=== PATIENT | female | born 1955 | race Caucasian/White ===

== ENCOUNTER 2023-05-19 09:16 | Outpatient (OUT) | payer MEDICARE, SELFPAY ==
--- NOTE | 2023-05-19 09:23 | MM_ITS ---
Patient Name: ANA EPPERSON MR#: [id number] : 1955 Exam Date: 05/19/2023 Ordering Doctor: DR CHANO SMILEY M.D. RADIOLOGY REPORT PROCEDURE: MM TOMOSYNTHESIS SCREENING BI COMPARISON: MG MAMM SCREEN 3D JOSEPHINE CAD, 05/12/2022. MG MAMM SCREEN JOSEPHINE W CAD, 01/22/2020. MG MAMM SCREEN JOSEPHINE W CAD, 01/09/2019. MG MAMM SCREEN JOSEPHINE W CAD, 07/20/2016. INDICATIONS: Screening Calculator Name NCI Breast Cancer Risk Assessment Tool 5 Year Breast Cancer Risk 2.50% Lifetime Breast Cancer Risk 8.40% Personal Breast Cancer No Personal Ovarian Cancer No Treatments None Family Cancers None LOCATION: [facility] BREAST COMPOSITION: Heterogeneously dense,which may obscure small masses. FINDINGS: DIAGNOSTIC CATEGORY 2--BENIGN FINDING: RIGHT BREAST: No significant suspicious finding. Scattered benign-appearing calcifications are present. Stable biopsy marker clip and post biopsy scarring. No significant change has occurred. LEFT BREAST: No significant suspicious finding. Scattered benign-appearing calcifications are present. No significant change has occurred. RECOMMENDATIONS: ROUTINE MAMMOGRAM AND CLINICAL EVALUATION IN 12 MONTHS. PLEASE NOTE: A NORMAL MAMMOGRAM DOES NOT EXCLUDE THE POSSIBILITY OF BREAST CANCER. A CLINICALLY SUSPICIOUS PALPABLE LUMP SHOULD BE BIOPSIED. Dictated by: Robin Fitch M.D. on 05/20/2023 at 13:22 Approved by: Robin Fitch M.D. on 05/20/2023 at 13:34
== END 2023-05-19 09:17 | disposition home or self-care (01) ==
LOC: MAMMO 09:16
PROVIDERS: PCP Nurse Practitioner Family; Visit Provider Internal Medicine
DX: Z12.31 Encounter for screening mammogram for malignant neoplasm of breast (principal)
CPT/HCPCS: 77063; 77067

== ENCOUNTER 2024-05-23 10:25 | Outpatient (OUT) | payer MEDICARE, SELFPAY ==
--- NOTE | 2024-05-23 10:27 | MM_ITS ---
Patient Name: ANA EPPERSON MR#: [id number] : 1955 Exam Date: 05/23/2024 Ordering Doctor: DR CHANO SMILEY M.D. RADIOLOGY REPORT PROCEDURE: MM TOMOSYNTHESIS SCREENING BI COMPARISON: MM TOMOSYNTHESIS SCREENING BI, 05/19/2023. MG MAMM SCREEN 3D JOSEPHINE CAD, 05/12/2022. MG MAMM SCREEN JOSEPHINE W CAD, 01/22/2020. MG MAMM SCREEN JOSEPHINE W CAD, 07/20/2016. INDICATIONS: Screening Calculator Name NCI Breast Cancer Risk Assessment Tool 5 Year Breast Cancer Risk 2.50% Lifetime Breast Cancer Risk 8.10% Personal Breast Cancer No Personal Ovarian Cancer No Treatments None Family Cancers None LOCATION: [facility] BREAST COMPOSITION: The breasts are heterogeneously dense,which may obscure small masses. FINDINGS: RIGHT BREAST: No significant suspicious finding. LEFT BREAST: No significant suspicious finding. DIAGNOSTIC CATEGORY 1--NEGATIVE. RECOMMENDATIONS: ROUTINE MAMMOGRAM AND CLINICAL EVALUATION IN 12 MONTHS. PLEASE NOTE: A NORMAL MAMMOGRAM DOES NOT EXCLUDE THE POSSIBILITY OF BREAST CANCER. A CLINICALLY SUSPICIOUS PALPABLE LUMP SHOULD BE BIOPSIED. Dictated by: Arvin Angela DO on 05/24/2024 at 15:16 Approved by: Arvin Angela DO on 05/24/2024 at 15:20
== END 2024-05-23 10:26 | disposition home or self-care (01) ==
LOC: MAMMO 10:25
PROVIDERS: PCP Nurse Practitioner Family; Visit Provider Internal Medicine
DX: Z12.31 Encounter for screening mammogram for malignant neoplasm of breast (principal)
CPT/HCPCS: 77063; 77067

== ENCOUNTER 2024-06-19 08:22 | Outpatient (OUT) | payer MEDICARE, SELFPAY | END 2024-06-19 08:23 | disposition home or self-care (01) | LOC: RAD 08:22 | PROVIDERS: PCP Nurse Practitioner Family; Visit Provider Internal Medicine | DX: E28.39 Other primary ovarian failure (principal) | CPT/HCPCS: 77080 ==